=== PATIENT | female | born 2000 | race Hispanic/Latino ===

== ENCOUNTER 2021-03-01 03:49 | Inpatient (IN) | payer BC, MEDICAID ==
--- NOTE | 2021-02-28 18:04 | PCM.LDHP ---
L&D History of Present Illness - General Date of Service: 03/01/21 Admit Problem/Dx: Admission Diagnosis/Problem Admission Diagnosis/Problem section 02/28/21 17:53 Olivia is a 20-year-old 3 para 2-0-0-2 at 39-0/7 weeks gestational age with an CHASTITY of 03/08/2021 who is admitted for a repeat section. Source of Information: Patient History Limitations: Reports: No Limitations - History of Present Illness Introduction:: Olivia is a 20-year-old 3 para 2-0-0-2 at 39-0/7 weeks gestational age with an CHASTITY of 03/08/2021 who is admitted for a repeat section. The procedure, risk, benefits, alternatives of care including offering attempt at vaginal after section are all discussed in detail with patient. She appears understand, wishes to proceed and signed a consent. 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 Patient had menarche at age 9. Cycles q. 28 days. Cycles lasting approximately 7 days. Last menstrual period was only approximate. Her CHASTITY was set by an ultrasound done on 08/03/2020 at 9-0/7 weeks gestational age. Patient declines any STIs, abnormal Pap smears or other gynecologic concerns. She was not using any control at the time of conception. Past obstetric experience includes the followin. Male born 10/25/2018 at 41 weeks gestational age7 pounds 7 o uncesprimary section done for failure to progressepidural used [place]section in [place]. 2. Female born 03/13/2020 at 39 weeks gestational age7 pounds 12 ouncesrepeat C-sectionspinal anesthesiaC-section done in [place] course: Patient's first visit was on 08/03/2020. She was seen on a regular basis during the course of the . Her vital signs remained stable. Her weight went from 189 pounds to 188 pounds over the course the . Her fundal height growth was appropriate. Vital signs remained stable throughout the . She is Covid positive diagnosed on 11/01/2020. She has no residual effects from this. She desires to see the baby during the with the drape dropped down. will be attending the 2 older children and will not be attending her in room. She is group B strep positive. x2 done for failure to progress and elective repeat respectively. She has a history of gallstones. She plans to breast-feed. Prequel noninvasive screen earlier in the was negative. Patient is rubella immune. Laboratory testing in : Labs at first visit showed blood to be a positive with negative antibody screen. Hemoglobin is 12.3. Platelets were 317,000. Rubella titer was immune and RPR was nonreactive. Urine culture was negative. Hepatitis B surface antigen and HIV assays were both negative. Chlamydia, gonorrhea and HCV antibodies were negative. Second trimester laboratory testing 1 hour GTT to be 91. RPR was nonreactive. Hemoglobin was 11.7 and platelets were 266,000. Group B strep screen was positive. Prequel noninvasive testing showed low risk for trisomy 21, 18 and 13. Allergies: None Medications: 1. vitamins 1 daily Past medical history: 1. History of depression Past surgical history: 1. Appendectomy 2015 2. times 03/2016 and 2018. Family history: Mother is alive and well with hypertension. Maternal grandfather is unknown. Maternal grandmother is alive with hypertension. Father is alive but is an alcoholic. Paternal grandfather is alive as his paternal grandmother. 1 brother is alive and well. 2 sisters are both alive and well. Maternal aunt with questionable cysts. Had 1 due to this. No family history bleeding/clotting disorders, anesthesia related problems or related concerns. Social history: Patient is . is Elgin Wallace. They live in [place], [place]. She works doing daycare. She does not use any significance alcohol, drugs or tobacco. She is a high school graduate. Review of systems: In general patient has no complaints. Baby is active. No contractions noted. Skin: Negative Lungs: No infectious symptoms or shortness of breath Cardiovascular: No chest pain or exercise intolerance Breasts: No lumps, changes in size, pain, dimpling, discharge or axillary or supraclavicular concerns. Changes associated with . Patient does plan to breast-feed. GI: Negative : Body habitus changes associated with . Musculoskeletal: Negative Neurological: Negative Physical exam: In general the patient is well-developed, well-nourished, pleasant female of stated age in no acute distress. On last evaluation in clinic on 02/27/2021 blood pressure 106/72. Weight was 187. Fundal height was appropriate for dates and baby is in vertex presentation. heart rate was 135 bpm. Skin is warm dry without lesions. HEENT, neck and back within normal limits. Lungs are clear with good breath sounds in all lung turpin. Cardiovascular exam shows regular and rhythm without murmurs. Breast exam was done at first annual visit and found to be within normal is. Is not repeated at this time. Abdomen is gravid with last fundal height in clinic at 38 cm.. Genital digital exam on last evaluation clinic 02/15/2021 shows cervix to be closed, thick and firm. Extremities and neurological exam are grossly within normal limits. - Related Data Allergies/Adverse Reactions: Allergies Allergy/AdvReac Type Severity Reaction Status Date / Time No Known Allergies Allergy Verified 02/28/21 13:50 Home Medications: Home Meds Pnv No.95/Ferrous Fum/Folic AC [ Tablet] 1 tab PO DAILY 02/28/21 [History] Past Medical History Gastrointestinal History: Reports: Cholelithiasis SUMMER CAMP COUNSELOR History: Reports: Other OB/BYN History: C/S 2017 & 2019 Neurological History: Reports: Headaches, Chronic Psychiatric History: Reports: Other (See Below) Other Psychiatric History: PPD - Past Surgical History GI Surgical History: Reports: Appendectomy Female Surgical History: Reports: Section Social & Family History - Family History Family Medical History: No Pertinent Family History - Tobacco Use Tobacco Use Status *Q: Never Tobacco User Second Hand Smoke Exposure: No - Caffeine Use Caffeine Use: Reports: None - Recreational Drug Use Recreational Drug Use: No H&P Review of Systems - Review of Systems: Review Of Systems: See Below L&D Exam - Exam Exam: See Below - Problem List (1) 39 weeks gestation of SNOMED Code(s): 85721846 ICD Code: Z3A.39 - 39 WEEKS GESTATION OF Status: Acute (2) Previous section SNOMED Code(s): 887258026 ICD Code: Z98.891 - HISTORY OF UTERINE SCAR FROM PREVIOUS SURGERY Status: Acute (3) Group beta Strep positive SNOMED Code(s): 792567764, [id number] ICD Code: B95.1 - STREPTOCOCCUS, GROUP B, CAUSING DISEASES CLASSD [id number] Status: Acute (4) Cholelithiasis SNOMED Code(s): 707604415 ICD Code: K80.20 - CALCULUS OF GALLBLADDER W/O CHOLECYSTITIS W/O OBSTRUCTION Status: Acute Problem List Initiated/Reviewed/Updated: Yes Assessment/Plan Comment:: 1. Olivia is a 20-year-old 3 para 2-0-0-2 at 39-0/7 weeks gestational age with an CHASTITY of 03/08/2021 who is admitted for a repeat section. Patient has had previous x2 with desire for repeat section. Procedure, risk, benefits, alternatives of care including attempting a trial of labor after section for all discussed with patient and her . They appear to understand and wished to proceed. Consent is signed. 2. Risk factors for the include group B strep positive status, histor y of Covid during , x2, history of gallstones. 3. Patient plans to breast-feed 4. Patient is rubella immune. She declined Tdap. Plan: 1. Repeat lower in segment transverse section with Pfannenstiel skin incision under spinal block. 2. DVT prophylaxis with SCDs 3. Infection prophylaxis with Ancef 2 g IV preop 4. Routine preoperative evaluation: Type and screen, CBC, Covid testing, RPR per routine. 5. Support breast-feeding decision 6. 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
[~2021-03-01 03:49] MED LIST: Oxytocin/Lactated Ringers 10 UNIT/1,000 ML BAG IV SCH; Oxytocin/Lactated Ringers 20 UNIT/1,000 ML BAG IV SCH
[2021-03-01] MEDS ORDERED: Citric Acid/Sodium Citrate Solution 30 ML Cup PO ONE (05:30)
[2021-03-01] MEDS ORDERED: ceFAZolin 2 GM in Sodium Chloride 0.9% 50 ML IV ONE (05:30)
[2021-03-01] MEDS ORDERED: Metoclopramide 10 MG/2 ML SDV IVPUSH ONE (05:30)
[2021-03-01] MEDS: Lactated Ringers 1,000 ML IV SCH ×2 (06:45→07:34)
[2021-03-01] MEDS ORDERED: Phenylephrine 1% 10 MG/ML SDV ONE (07:18)
[2021-03-01] MEDS ORDERED: ceFAZolin 1 GM Vial ONE (07:18)
[2021-03-01] MEDS ORDERED: Morphine PF 10 MG/10 ML SDV ONE (07:19)
[2021-03-01] MEDS ORDERED: Oxytocin 10 Units/1 ML SDV ONE ×2 (07:25→08:11)
[2021-03-01] MEDS ORDERED: Ketorolac 30 MG/ML SDV ONE (07:25)
[2021-03-01] MEDS ORDERED: Bupivacaine 0.5% 10 ML SDV ONE (07:26)
[2021-03-01] MEDS ORDERED: diphenhydrAMINE 50 MG/ML SDV IVPUSH PRN ×2 (08:47→08:56)
--- NOTE | 2021-03-01 08:48 | PCM.POSTAN ---
POST ANESTHESIA ASSESSMENT - MENTAL STATUS Mental Status: Alert, Oriented - VITAL SIGNS Vital Signs: Last Vital Signs Temp 36.4 C 03/01/21 06:30 Pulse 89 03/01/21 06:30 Resp 14 03/01/21 06:30 BP 122/50 L 03/01/21 06:30 Pulse Ox 100 03/01/21 06:30 - RESPIRATORY Respiratory Status: Respiratory Rate WNL - CARDIOVASCULAR CV Status: Pulse Rate WNL, Blood Pressure Stable - GASTROINTESTINAL GI Status: No Symptoms - PAIN Pain Score: 0 - POST OP HYDRATION Hydration Status: Adequate & Stable - OBSERVATIONS Free Text/Narrative:: no anesthesia complications noted
--- NOTE | 2021-03-01 08:50 | PCM.PREANE ---
Preanesthetic Assessment - Procedure Proposed Procedure: Repeat - Anesthesia/Transfusion/Family Hx Anesthesia History: Prior Anesthesia Without Reaction Family History of Anesthesia Reaction: No Transfusion History: No Prior Transfusion(s) - Review of Systems General: No Symptoms Pulmonary: No Symptoms Cardiovascular: No Symptoms Gastrointestinal: No Symptoms Neurological: No Symptoms Other: Reports: None - Physical Assessment NPO Status Date: 02/28/21 NPO Status Time: 00:00 Vital Signs: Last Vital Signs Temp 36.4 C 03/01/21 06:30 Pulse 89 03/01/21 06:30 Resp 14 03/01/21 06:30 BP 122/50 L 03/01/21 06:30 Pulse Ox 100 03/01/21 06:30 Height: 1.57 m Weight: 85.23 kg ASA Class: 2 Mental Status: Alert & Oriented x3 Airway Class: Mallampati = 1 Dentition: Reports: Normal Dentition Thyro-Mental Finger Breadths: 3 Mouth Opening Finger Breadths: 3 ROM/Head Extension: Full Lungs: Clear to Auscultation, Normal Respiratory Effort Cardiovascular: Regular Rate, Regular Rhythm - Lab Values: Laboratory Last Values WBC 10.75 K/mm3 (3.98-10.04) H 03/01/21 06:25 RBC 4.56 M/mm3 (3.98-5.22) 03/01/21 06:25 Hgb 12.7 gm/dl (11.2-15.7) 03/01/21 06:25 Hct 38.7 % (34.1-44.9) 03/01/21 06:25 MCV 84.9 fl (79.4-94.8) 03/01/21 06:25 MCH 27.9 pg (25.6-32.2) 03/01/21 06:25 MCHC 32.8 g/dl (32.2-35.5) 03/01/21 06:25 RDW Std Deviation 41.9 fL (36.4-46.3) 03/01/21 06:25 Plt Count 308 K/mm3 (182-369) 03/01/21 06:25 MPV 9.7 fl (9.4-12.3) 03/01/21 06:25 Neut % (Auto) 72.2 % (34.0-71.1) H 03/01/21 06:25 Lymph % (Auto) 20.9 % (19.3-51.7) 03/01/21 06:25 Citrus % (Auto) 5.5 % (4.7-12.5) 03/01/21 06:25 Eos % (Auto) 0.8 (0.7-5.8) 03/01/21 06:25 Baso % (Auto) 0.2 % (0.1-1.2) 03/01/21 06:25 Neut # (Auto) 7.76 K/mm3 (1.56-6.13) H 03/01/21 06:25 Lymph # (Auto) 2.25 K/mm3 (1.18-3.74) 03/01/21 06:25 Citrus # (Auto) 0.59 K/mm3 (0.24-0.36) H 03/01/21 06:25 Eos # (Auto) 0.09 K/mm3 (0.04-0.36) 03/01/21 06:25 Baso # (Auto) 0.02 K/mm3 (0.01-0.08) 03/01/21 06:25 SARS-CoV-2 RNA (ANÍBAL) Negative (NEGATIVE) 03/01/21 06:30 Blood Type A POSITIVE 03/01/21 06:25 - Allergies Allergies/Adverse Reactions: Allergies Allergy/AdvReac Type Severity Reaction Status Date / Time No Known Allergies Allergy Verified 02/28/21 13:50 - Anesthesia Plan Pre-Op Medication Ordered: Antacids - Acknowledgements Anesthesia Type Planned: Spinal Pt an Appropriate Candidate for the Planned Anesthesia: Yes Alternatives and Risks of Anesthesia Discussed w Pt/Guardian: Yes Pt/Guardian Understands and Agrees with Anesthesia Plan: Yes PreAnesthesia Questionnaire Gastrointestinal History: Reports: Cholelithiasis, GERD 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: Other OB/BYN History: C/S 2017 & 2019 Neurological History: Reports: Headaches, Chronic Psychiatric History: Reports: Other (See Below) Other Psychiatric History: PPD - Past Surgical History GI Surgical History: Reports: Appendectomy Female Surgical History: Reports: Section - SUBSTANCE USE Tobacco Use Status *Q: Never Tobacco User Tobacco Use Within Last Twelve Months: No Second Hand Smoke Exposure: No Recreational Drug Use History: No - HOME MEDS Home Medications: Home Meds Pnv No.95/Ferrous Fum/Folic AC [ Tablet] 1 tab PO DAILY 02/28/21 [History] - CURRENT (IN HOUSE) MEDS Current Meds: Current Medications Diphenhydramine HCl (Diphenhydramine 50 Mg/Ml Sdv) 25 mg IVPUSH Q6H PRN PRN Reason: Itching Lactated Ringer's (Ringers, Lactated) 1,000 mls @ 125 mls/hr IV ASDIRECTED JAVIER Last Admin: 03/01/21 07:34 Dose: 125 mls/hr Documented by: Oxytocin/Lactated Ringer's (Pitocin In Lr 20 Units/1,000 Ml) 20 unit in 1,000 mls @ 1,500 mls/hr IV TITRATE JAVIER; Protocol Sodium Chloride (Sodium Chloride 0.9% 10 Ml Syringe) 10 ml FLUSH 0900,2100 JAVIER Discontinued Medications Bupivacaine HCl (Bupivacaine 0.5% 10 Ml Sdv) Confirm Administered Dose 20 ml .ROUTE .STK-MED ONE Stop: 03/01/21 07:27 Cefazolin Sodium (Cefazolin 1 Gm Vial) Confirm Administered Dose 2 gm .ROUTE .STK-MED ONE Stop: 03/01/21 07:19 Citric Acid/Sodium Citrate (Citric Acid/Sodium Citrate Solution 30 Ml Cup) 30 ml PO ONETIME ONE Stop: 03/01/21 05:31 Last Admin: 03/01/21 07:10 Dose: 30 ml Documented by: Cefazolin Sodium 2 gm/ Sodium (Chloride) 50 mls @ 100 mls/hr IV ONETIME ONE Stop: 03/01/21 05:59 Ketorolac Tromethamine (Ketorolac 30 Mg/Ml Sdv) Confirm Administered Dose 30 mg .ROUTE .STK-MED ONE Stop: 03/01/21 07:26 Metoclopramide HCl (Metoclopramide 10 Mg/2 Ml Sdv) 10 mg IVPUSH ONETIME ONE Stop: 03/01/21 05:31 Last Admin: 03/01/21 07:10 Dose: 10 mg Documented by: Miscellaneous Medication (Phenylephrine Hcl In 0.9% Nacl 1 Mg/10 Ml Syringe) Confirm Administered Dose 1 mg .ROUTE .STK-MED ONE Stop: 03/01/21 07:20 Morphine Sulfate (Morphine Pf 10 Mg/10 Ml Sdv) Confirm Administered Dose 10 mg .ROUTE .STK-MED ONE Stop: 03/01/21 07:20 Oxytocin (Oxytocin 10 Units/1 Ml Sdv) Confirm Administered Dose [address] .[facility] ONE Stop: 03/01/21 07:26 Oxytocin (Oxytocin 10 Units/1 Ml Sdv) Confirm Administered Dose 10 [address] .[facility] ONE Stop: 03/01/21 08:12 Phenylephrine HCl (Phenylephrine 1% 10 Mg/Ml Sdv) Confirm Administered Dose 10 mg .[address] .[facility] ONE Stop: 03/01/21 07:19
--- NOTE | 2021-03-01 08:54 | PCM.OPNOTE ---
- General Post-Op/Procedure Note Date of Surgery/Procedure: 03/01/21 Operative Procedure(s): Repeat lower uterine segment transverse section through Pfannenstiel skin incision Findings: Anterior abdominal wall had minimal scarring present from previous C-sections. Anterior uterine, lower uterine segment was very thin at no more than 1 mm thick. The fallopian tubes and ovaries were otherwise within normal limits. Omentum was somewhat adhered to the anterior abdominal wall into the anterior superior portion of the uterus. Baby had terminal meconium but amniotic fluid is relatively clear. It is a vertex presentation. Female born at 081 0 hours on 03/01/2023. Apgars 8 and 8. Weight was 3130 g (6 pounds 14 ounces) Pre Op Diagnosis: 20-year-old 3 para 2-0-0-2 female at 39-0/7 weeks with history of previous section x2 and desire for repeat section. Post-Op Diagnosis: Same as preop was delivery of a Female born at 0810 hours on 03/01/2023. Apgars 8 and 8. Weight was 3130 g (6 pounds 14 ounces) Anesthesia Technique: Spinal Other Anesthesia Type: Marcaine 0.5% - 20 mLlocal Primary Surgeon: Vadim Castanon Secondary Surgeon: Marcial Hernandez Anesthesia Provider: Teto Isbell Wood And Hardware Outfitter: Jeannine Perez Reason Wood And Hardware Outfitter Was Necessary: Retraction, assistance, patient safety, quality of care. Fluid Replacement, Intraop: 2,600 Output, Urine Amount: 100 EBL in mLs: 600 Drain/Tube Comments:: Indwelling bladder catheter Complications: None Condition: Good Free Text/Narrative:: Surgery duration: 30 minutes Surgery duration: Procedure: The patient is appropriately consented. Patient was transferred to the room and placed in a sitting position. Spinal anesthesia was administered. After confirmation of adequate anesthesia patient was placed in a supine position with a wedge under her right side to facilitate left lateral positioning. The patient was prepped and draped in usual fashion after Dallas catheter was already placed . The anesthetic was checked and found to be adequate. 20 mL of Marcaine 0.5% was injected locally in the Pfannenstiel incision site. The Pfannenstiel skin incision was then made and carried down through skin, subcutaneous and fascial layers. The fascia was then undermined superiorly and inferiorly to allow for adequate operating room. The recti muscles midline and preperitoneal fat was bluntly dissected. Peritoneal cavity was entered longitudinally. The vesicouterine peritoneum was then incised transversely and bladder flap was developed. Myometrium was found to be very thin at no more than 1 mm thickness. Myometrium was incised transversely to the level of the amniotic sac. This incision was extended bilaterally in a blunt fashion. The amniotic sac was then ruptured resulting in clear amniotic fluid. As the baby delivered there was some terminal meconium evident. Nuchal cord x1 was noted and was reduced over the baby's head. A hand is placed in the low uterine segment and the baby's head was brought forth through the incision. The baby was completely delivered using fundal pressure in a routine fashion. The nose and mouth were bulb suctioned. Baby's cord was clamped x2 cut and baby was handed off to attending head of marketing Dr Cuellar. Placenta was expressed after cord blood was obtained. Uterus was then exteriorized to allow for easier closure. The cervix was assessed and found to be dilated adequately to allow egress of blood. The uterus was closed in 2 layers. The first layer a running locked suture of 0 Monocryl, the second layer a running locked vertical mattress suture of 0 Monocryl. Hemostasis confirmed at this time. Sponge instrument needle counts are correct. The uterus was returned to the abdominal cavity and lateral gutters were cleared of blood. Once again sponge needle counts are correct. The anterior abdominal wall was closed with a #1 PDS suture from angle to angle. The subcutaneous area was found to be free of any bleeders. interrupted sutures of 3-0 Monocryl were used to reapproximate the subcutaneous layer.Skin was closed with a running subcuticular stitch of 3-0 Monocryl in a vertical mattress suture fashion using a Duc needle. Prineo mesh/glue was then applied to further approximate the incision. It should be noted that patient received 2 g of Ancef preoperatively for infection prophylaxis and had Pitocin infused after delivery of the placenta to facilitate uterine contraction. She also had sequential compression stockings in place for DVT prophylaxis. Patient was discharged from the operating room in satisfactory condition.
[2021-03-01] MEDS ORDERED: Naloxone 0.4 MG/ML SDV IVPUSH PRN (08:56)
[2021-03-01] MEDS ORDERED: Docusate Sodium 100 MG Cap PO PRN (08:56)
[2021-03-01] MEDS ORDERED: Dextrose 5%-Lactated Ringers 1,000 ML IV SCH (08:56)
[2021-03-01] MEDS ORDERED: ePHEDrine 50 MG/ML SDV IVPUSH PRN (08:56)
[2021-03-01] MEDS ORDERED: Sodium Chloride 0.9% 10 ML Syringe FLUSH SCH (09:00)
[2021-03-01] MEDS: Ondansetron 4 MG/2 ML SDV IV PRN ×2 (10:16→14:08)
[2021-03-01] MEDS: Simethicone 80 MG Tab.Chew PO SCH ×4 (10:51→20:09)
[2021-03-01] MEDS: Prenatal Multivitamin with Calcium/Folic Acid/Iron Tab PO SCH (10:51)
[2021-03-01] MEDS: Acetaminophen/oxyCODONE 325-5 MG Tab PO PRN ×2 (11:54→17:30)
[2021-03-01] MEDS: Ibuprofen 600 MG Tab PO SCH ×2 (14:09→20:06)
[2021-03-02] MEDS: Ibuprofen 600 MG Tab PO SCH ×4 (01:59→20:30)
[2021-03-02] MEDS: Acetaminophen/oxyCODONE 325-5 MG Tab PO PRN ×3 (06:55→21:26)
--- NOTE | 2021-03-02 07:00 | PCM48HPAN ---
Post Anesthesia Note - EVALUATION WITHIN 48HRS OF ANESTHETIC Vital Signs in Normal Range: Yes Patient Participated in Evaluation: Yes Respiratory Function Stable: Yes Airway Patent: Yes Cardiovascular Function Stable: Yes Hydration Status Stable: Yes Pain Control Satisfactory: Yes Nausea and Vomiting Control Satisfactory: Yes Mental Status Recovered: Yes Vital Signs: Last Vital Signs Temp 99.1 F 03/02/21 03:25 Pulse 72 03/02/21 03:25 Resp 16 03/02/21 05:00 BP 112/64 03/02/21 03:25 Pulse Ox 96 03/02/21 05:00 - COMMENTS/OBSERVATIONS Free Text/Narrative:: Patient resting in bed holding baby when visiting with patient. Patient stated that she was "very happy" with her and spinal experience. Patient complained of mild back pain in spinal placement site but is controlled and has not gotten worse. Discussed signs and symptoms of infection, post-dural puncture headaches, post- depression, and if patient experiences increased back discomfort. Encouraged patient if any of those signs or symptoms develop to contact OB/Anesthesia so the patient can be treated accordingly if needed. Patient verbalized understanding. Patient did not voice any questions or concerns at this time. Mckenzie Duggan, FINAL EXPENSE AGENT
[2021-03-02] MEDS: Simethicone 80 MG Tab.Chew PO SCH ×4 (08:13→20:30)
[2021-03-02] MEDS: Prenatal Multivitamin with Calcium/Folic Acid/Iron Tab PO SCH (08:13)
--- NOTE | 2021-03-02 08:24 | PCM.SN.2 ---
- Free Text/Narrative Note: Post Operative Progress Note POD #1 Subjective: Doing well overall. Ambulating without difficulty. Lochia minimal. Dallas catheter removed earlier this morning and has not had urge to void since removal. Passing flatus. Tolerating regular diet without nausea or vomiting. Pain controlled with oral medications. Breast-feeding with minimal difficulty. Denies any fevers or chills. Objective: Vitals: Vital Signs - 24 hr 03/01/21 03/01/21 03/01/21 08:42 08:50 09:00 Temperature Temperature [ 36.7 C Temporal] Pulse, Peripheral Respiratory 23 H 19 19 Rate Blood Pressure Blood Pressure 100/54 L 101/60 104/61 [Right Upper] O2 Sat by Pulse 97 97 96 Oximetry 03/01/21 03/01/21 03/01/21 09:15 09:34 13:00 Temperature 36.2 C Temperature [ 36.2 C 36.1 C Temporal] Pulse, 66 Peripheral Respiratory 16 16 16 Rate Blood Pressure 112/66 Blood Pressure 105/61 [Right Upper] O2 Sat by Pulse 99 97 98 Oximetry 03/01/21 03/01/21 03/01/21 13:59 14:02 14:04 Temperature Temperature [ Temporal] Pulse, 70 78 75 Peripheral Respiratory Rate Blood Pressure 125/74 73/36 L 114/60 Blood Pressure [Right Upper] O2 Sat by Pulse 99 100 100 Oximetry 03/01/21 03/01/21 03/01/21 14:31 15:02 15:32 Temperature Temperature [ Temporal] Pulse, 68 70 67 Peripheral Respiratory Rate Blood Pressure 103/57 L 109/59 L 119/59 L Blood Pressure [Right Upper] O2 Sat by Pulse 99 98 97 Oximetry 03/01/21 03/01/21 03/01/21 15:58 16:00 17:00 Temperature Temperature [ 36.5 C Temporal] Pulse, 70 Peripheral Respiratory 16 18 Rate Blood Pressure 107/66 Blood Pressure [Right Upper] O2 Sat by Pulse 99 97 97 Oximetry 03/01/21 03/01/21 03/01/21 20:44 22:00 23:00 Temperature 37.2 C Temperature [ Temporal] Pulse, 72 Peripheral Respiratory 16 15 14 Rate Blood Pressure 122/61 Blood Pressure [Right Upper] O2 Sat by Pulse 96 97 96 Oximetry 03/02/21 03/02/21 03/02/21 03:00 03:25 04:00 Temperature 37.3 C Temperature [ Temporal] Pulse, 72 Peripheral Respiratory 14 16 16 Rate Blood Pressure 112/64 Blood Pressure [Right Upper] O2 Sat by Pulse 96 96 96 Oximetry Physical Exam General: Alert and oriented, no acute distress Lungs: Clear to auscultation bilaterally Heart: Regular rate and rhythm Abdomen: Soft, minimal appropriate tenderness, non-distended, fundus midline, nontender and at the umbilicus Incision: Clean, dry and intact, no erythema, bleeding or drainage with Prineo dressing in place Extremities: No edema in bilateral lower extremities, no calf tenderness bilaterally Labs: Laboratory Results - last 24 hr 03/01/21 03/01/21 03/02/21 Range/Units 06:25 06:25 05:14 WBC 9.88 (3.98-10.04) K/mm3 RBC 3.68 L (3.98-5.22) M/mm3 Hgb 10.0 L D (11.2-15.7) gm/dl Hct 31.8 L (34.1-44.9) % MCV 86.4 (79.4-94.8) fl MCH 27.2 (25.6-32.2) pg MCHC 31.4 L (32.2-35.5) g/dl RDW Std Deviation 41.9 (36.4-46.3) fL Plt Count 253 (182-369) K/mm3 MPV 9.9 (9.4-12.3) fl Neut % (Auto) 70.0 (34.0-71.1) % Lymph % (Auto) 22.0 (19.3-51.7) % [place] % (Auto) 6.8 (4.7-12.5) % Eos % (Auto) 0.8 (0.7-5.8) Baso % (Auto) 0.2 (0.1-1.2) % Neut # (Auto) 6.92 H (1.56-6.13) K/mm3 Lymph # (Auto) 2.17 (1.18-3.74) K/mm3 [place] # (Auto) 0.67 H (0.24-0.36) K/mm3 Eos # (Auto) 0.08 (0.04-0.36) K/mm3 Baso # (Auto) 0.02 (0.01-0.08) K/mm3 RPR Non-reactive (NONREACTIVE) Blood Type A POSITIVE Gel Antibody Screen Negative ASSESSMENT: 20-year-old female -0-0-3 s/p repeat section POD #1 for history of section, complicated by history of depression and GBS positive status PLAN: Doing well Breast-feeding with minimal difficulty. Assist as needed Incision healing well. Continue to keep clean and dry. Lochia minimal. Continue to monitor for appropriate lochia. Continue routine post-operative care Monitor for ability to urinate after removal of the catheter. If patient is unable to urinate after 4 to 6 hours would recommend for straight cath x1 and if still unable to void 4 to 6 hours after that and then reinsert Dallas catheter Anticipate discharge home tomorrow Marcial Hernandez MD 8:22 AM 03/02/2021
[2021-03-03] MEDS: Ibuprofen 600 MG Tab PO SCH ×2 (02:32→09:58)
--- NOTE | 2021-03-03 09:42 | PCM.SN.2 ---
- Free Text/Narrative Note: Post Operative Progress Note POD #2 Subjective: Continues to be doing well overall. Ambulating without difficulty. Lochia minimal. Voiding without difficulty. Passing flatus. Tolerating regular diet without nausea or vomiting. Pain controlled with oral medications. Breast- feeding with minimal difficulty. Denies any fevers or chills. Objective: Vitals: Vital Signs - 24 hr 03/02/21 03/02/21 03/03/21 14:37 21:29 02:38 Temperature 37.0 C 36.5 C 36.7 C Pulse, 66 77 70 Peripheral Respiratory 16 16 14 Rate Blood Pressure 114/71 101/66 123/64 O2 Sat by Pulse 94 L 97 95 Oximetry Physical Exam General: Alert and oriented, no acute distress Lungs: Clear to auscultation bilaterally Heart: Regular rate and rhythm Abdomen: Soft, minimal appropriate tenderness, non-distended, fundus midline, nontender and at the umbilicus Incision: Clean, dry and intact, no erythema, bleeding or drainage with Prineo dressing in place Extremities: No edema in bilateral lower extremities, no calf tenderness bilaterally ASSESSMENT: 20-year-old female -0-0-3 s/p repeat section POD #2 for history of section, complicated by history of depression and GBS positive status PLAN: Doing well Breast-feeding with minimal difficulty. Assist as needed Incision healing well. Continue to keep clean and dry. Lochia minimal. Continue to monitor for appropriate lochia. Continue routine post-operative care Anticipate discharge home today Marcial Hernandez MD 9:41 AM 03/03/2021
--- NOTE | 2021-03-03 09:45 | PCM.DCSUM1 ---
Discharge Summary - Hospital Course Free Text/Narrative:: - General Post-Op/Procedure Note Date of Surgery/Procedure: 03/01/21 Operative Procedure(s): Repeat lower uterine segment transverse section through Pfannenstiel skin incision Findings: Anterior abdominal wall had minimal scarring present from previous C-sections. Anterior uterine, lower uterine segment was very thin at no more than 1 mm thick. The fallopian tubes and ovaries were otherwise within normal limits. Omentum was somewhat adhered to the anterior abdominal wall into the anterior superior portion of the uterus. Baby had terminal meconium but amniotic fluid is relatively clear. It is a vertex presentation. Female infant born at 081 0 hours on [birth year]21. Apgars 8 and 8. Weight was 3130 g (6 pounds 14 ounces) Pre Op Diagnosis: 20-year-old 3 para 2-0-0-2 female at 39-0/7 weeks with history of previous section x2 and desire for repeat section. Post-Op Diagnosis: Same as preop was delivery of a Female born at 0810 hours on 03/01/2021. Apgars 8 and 8. Weight was 3130 g (6 pounds 14 ounces) Anesthesia Technique: Spinal Other Anesthesia Type: Marcaine 0.5% - 20 mLlocal Primary Surgeon: Vadim Castanon Secondary Surgeon: Marcial Hernandez Anesthesia Provider: Teto sIbell Ornamental Plaster Sticker: Jeannine Perez Reason Ornamental Plaster Sticker Was Necessary: Retraction, assistance, patient safety, quality of care. Fluid Replacement, Intraop: 2,600 Output, Urine Amount: 100 EBL in mLs: 600 Drain/Tube Comments:: Indwelling bladder catheter Complications: None Condition: Good Free Text/Narrative:: Surgery duration: 30 minutes Surgery duration: Procedure: The patient is appropriately consented. Patient was transferred to the room and placed in a sitting position. Spinal anesthesia was administered. After confirmation of adequate anesthesia patient was placed in a supine position with a wedge under her right side to facilitate left lateral positioning. The patient was prepped and draped in usual fashion after [place] catheter was already placed . The anesthetic was checked and found to be adequate. 20 mL of Marcaine 0.5% was injected locally in the Pfannenstiel incision site. The Pfannenstiel skin incision was then made and carried down through skin, subcutaneous and fascial layers. The fascia was then undermined superiorly and inferiorly to allow for adequate operating room. The recti muscles midline and preperitoneal fat was bluntly dissected. Peritoneal cavity was entered longitudinally. The vesicouterine peritoneum was then incised transversely and bladder flap was developed. Myometrium was found to be very thin at no more than 1 mm thickness. Myometrium was incised transversely to the level of the amniotic sac. This incision was extended bilaterally in a blunt fashion. The amniotic sac was then ruptured resulting in clear amniotic fluid. As the baby delivered there was some terminal meconium evident. Nuchal cord x1 was noted and was reduced over the baby's head. A hand is placed in the low uterine segment and the baby's head was brought forth through the incision. The baby was completely delivered using fundal pressure in a routine fashion. The nose and mouth were bulb suctioned. Baby's cord was clamped x2 cut and baby was handed off to attending bevel mill operator Dr Cuellar. Placenta was expressed after cord blood was obtained. Uterus was then exteriorized to allow for easier closure. The cervix was assessed and found to be dilated adequately to allow egress of blood. The uterus was closed in 2 layers. The first layer a running locked suture of 0 Monocryl, the second layer a running locked vertical mattress suture of 0 Monocryl. Hemostasis confirmed at this time. Sponge instrument needle counts are correct. The uterus was returned to the abdominal cavity and lateral gutters were cleared of blood. Once again sponge needle counts are correct. The anterior abdominal wall was closed with a #1 PDS suture from angle to angle. The subcutaneous area was found to be free of any bleeders. interrupted sutures of 3-0 Monocryl were used to reapproximate the subcutaneous layer.Skin was closed with a running subcuticular stitch of 3-0 Monocryl in a vertical mattress suture fashion using a Duc needle. Prineo mesh/glue was then applied to further approximate the incision. It should be noted that patient received 2 g of Ancef preoperatively for infection prophylaxis and had Pitocin infused after delivery of the placenta to facilitate uterine contraction. She also had sequential compression stockings in place for DVT prophylaxis. Patient was discharged from the operating room in satisfactory condition. Diagnosis: Stroke: No - Discharge Data Discharge Date: 03/03/21 Discharge Disposition: Home, Self-Care 01 Condition: Good - Referral to Home Health Primary Care Physician: Vadim Castanon MD - Discharge Diagnosis/Problem(s) (1) delivery delivered SNOMED Code(s): 869800842 ICD Code: O82 - ENCOUNTER FOR DELIVERY WITHOUT INDICATION Status: Acute Current Visit: Yes (2) 39 weeks gestation of SNOMED Code(s): 57784699 ICD Code: Z3A.39 - 39 WEEKS GESTATION OF Status: Acute Current Visit: No (3) Cholelithiasis SNOMED Code(s): 792683396 ICD Code: K80.20 - CALCULUS OF GALLBLADDER W/O CHOLECYSTITIS W/O OBSTRUCTION Status: Acute Current Visit: No (4) Group beta Strep positive SNOMED Code(s): 725763935, 072484773 ICD Code: B95.1 - STREPTOCOCCUS, GROUP B, CAUSING DISEASES CLASSD [id number] Status: Acute Current Visit: No (5) Previous section SNOMED Code(s): 832208668 ICD Code: Z98.891 - HISTORY OF UTERINE SCAR FROM PREVIOUS SURGERY Status: Acute Current Visit: No - Patient Summary/Data Operative Procedure(s) Performed: Repeat lower uterine segment transverse section through Pfannenstiel skin incision Complications: None Consults: None Hospital Course: Olivia Sanchez was admitted for repeat section. She was taken back to the OR and given spinal injection for anesthesia. She was given Ancef 2 g IV for antibiotic prophylaxis. She was prepped and draped in the normal fashion. On 03/01/2021 she had a normal repeat delivery of a live female infant at 08:10. Apgars of 8 and 8. Weight of 3130 g (6 pounds 14 ounces). She was closed in a normal fashion. There were no complications with the procedure. Please see the operative report for full details. Her post operative course was uneventful. Her pain was well controlled and she had minimal lochia. She was ambulating, tolerating a regular diet and voiding normally. She was passing flatus and has not had a bowel movement. She was breast feeding without difficulty. She was afebrile and her hematocrit was 31.8 on POD #1. She desired to be discharged home on the morning of POD #2. Her blood type is A+. - Patient Instructions Diet: Regular Diet as Tolerated Activity: Apply Ice, As Tolerated, No Lifting Over 20 Pounds Activity, Other: Nothing in the vagina for 6 weeks Driving: Do Not Drive (While having significant pain or while on medications) Showering/Bathing: May Shower Wound/Incision Care: Keep Operative Site/Wound Site Clean and Dry Notify Provider of: Fever, Increased Pain, Swelling and Redness, Drainage, Nausea and/or Vomiting Other/Special Instructions: Please contact your physician's office if you note any bleeding or pus coming from the abdominal incision. Please contact your physician's office if you have heavy vaginal bleeding enough to soak a pad in less than an hour for several hours. Monitor for any signs of an infection in the breasts with severe pain or redness of the breast. - Discharge Plan *PRESCRIPTION DRUG MONITORING PROGRAM REVIEWED*: Yes *COPY OF PRESCRIPTION DRUG MONITORING REPORT IN PATIENT KAUSHAL: No Prescriptions/Med Rec: Acetaminophen/oxyCODONE [Percocet 325-5 MG] 1 - 2 tab PO Q6H PRN #30 tablet PRN Reason: Pain Home Medications: Home Meds Pnv No.95/Ferrous Fum/Folic AC [ Tablet] 1 tab PO DAILY 02/28/21 [History] Acetaminophen/oxyCODONE [Percocet 325-5 MG] 1 - 2 tab PO Q6H PRN #30 tablet 03/03/21 [Rx] Docusate Sodium [Colace] 100 mg PO Q12H PRN cap 03/03/21 [Rx] Ibuprofen [Motrin] 600 mg PO Q6H tablet 03/03/21 [Rx] Simethicone 80 mg PO QID tab.chew 03/03/21 [Rx] Patient Handouts: Delivery, Care After Referrals: Vadim Castanon MD [Primary Care Provider] - (Follow-up in 2 weeks for routine postoperative visit or earlier as needed) - Discharge Summary/Plan Comment DC Time >30 min.: No Total # of Minutes for Discharge Time: 15 minutes - Patient Data Vitals - Most Recent: Last Vital Signs Temp 36.7 C 03/03/21 02:38 Pulse 70 03/03/21 02:38 Resp 14 03/03/21 02:38 BP 123/64 03/03/21 02:38 Pulse Ox 95 03/03/21 02:38 Weight - Most Recent: 85.23 kg I&O - Last 24 hours: Intake & Output 03/02/21 03/03/21 03/03/21 22:59 06:59 14:59 Intake Total 240 Output Total 1300 Balance -1060 Med Orders - Current: Current Medications Diphenhydramine HCl (Diphenhydramine 50 Mg/Ml Sdv) 25 mg IVPUSH Q6H PRN PRN Reason: Itching Last Admin: 03/01/21 22:18 Dose: 25 mg Documented by: Diphenhydramine HCl (Diphenhydramine 50 Mg/Ml Sdv) 25 mg IVPUSH Q6H PRN PRN Reason: Itching or Nausea Docusate Sodium (Docusate Sodium 100 Mg Cap) 100 mg PO Q12H PRN PRN Reason: Constipation Last Admin: 03/01/21 20:10 Dose: 100 mg Documented by: Ephedrine Sulfate (Ephedrine 50 Mg/Ml Sdv) 5 mg IVPUSH SEECOMMENT PRN PRN Reason: Other Ibuprofen (Ibuprofen 600 Mg Tab) 600 mg PO Q6H [facility] Last Admin: 03/03/21 02:32 Dose: 600 mg Documented by: Naloxone HCl (Naloxone 0.4 Mg/Ml Sdv) 0.1 mg IVPUSH SEECOMMENT PRN PRN Reason: Respiratory Depression Ondansetron HCl (Ondansetron 4 Mg/2 Ml Sdv) 4 mg IV Q4H PRN PRN Reason: Nausea/Vomiting Last Admin: 03/01/21 14:08 Dose: 4 mg Documented by: Oxycodone/Acetaminophen (Acetaminophen/Oxycodone 325-5 Mg Tab) 1 tab PO Q4H PRN PRN Reason: Pain (moderate 4-6) Last Admin: 03/01/21 17:30 Dose: 1 tab Documented by: Oxycodone/Acetaminophen (Acetaminophen/Oxycodone 325-5 Mg Tab) 2 tab PO Q4H PRN PRN Reason: Pain (severe 7-10) Last Admin: 03/02/21 21:26 Dose: 2 tab Documented by: Prenat Multivit/Rochelle/Iron/Folic Ac ( Multivitamin With Calcium/Folic Acid/Iron Tab) 1 each PO DAILY [facility] Last Admin: 03/02/21 08:13 Dose: 1 each Documented by: Simethicone (Simethicone 80 Mg Tab.Chew) 80 mg PO QID [facility] Last Admin: 03/02/21 20:30 Dose: 80 mg Documented by: Discontinued Medications Bupivacaine HCl (Bupivacaine 0.5% 10 Ml Sdv) Confirm Administered Dose 20 ml .ROUTE .STK-MED ONE Stop: 03/01/21 07:27 Last Admin: 03/01/21 09:23 Dose: 20 ml Documented by: Cefazolin Sodium (Cefazolin 1 Gm Vial) Confirm Administered Dose 2 gm .ROUTE .STK-MED ONE Stop: 03/01/21 07:19 Citric Acid/Sodium Citrate (Citric Acid/Sodium Citrate Solution 30 Ml Cup) 30 ml PO ONETIME ONE Stop: 03/01/21 05:31 Last Admin: 03/01/21 07:10 Dose: 30 ml Documented by: Cefazolin Sodium 2 gm/ Sodium (Chloride) 50 mls @ 100 mls/hr IV ONETIME ONE Stop: 03/01/21 05:59 Lactated Ringer's (Ringers, Lactated) 1,000 mls @ 125 mls/hr IV ASDIRECTED [facility] Last Admin: 03/01/21 07:34 Dose: 125 mls/hr Documented by: Oxytocin/Lactated Ringer's (Pitocin In Lr 20 Units/1,000 Ml) 20 unit in 1,000 mls @ 1,500 mls/hr IV TITRATE [facility]; Protocol Dextrose/Lactated Ringer's (Dextrose 5%-Lactated Ringers) 1,000 mls @ 125 mls/hr IV ASDIRECTED [facility] Stop: 03/01/21 16:55 Last Admin: 03/01/21 10:18 Dose: 125 mls/hr Documented by: Ketorolac Tromethamine (Ketorolac 30 Mg/Ml Sdv) Confirm Administered Dose 30 mg .ROUTE .STK-MED ONE Stop: 03/01/21 07:26 Metoclopramide HCl (Metoclopramide 10 Mg/2 Ml Sdv) 10 mg IVPUSH ONETIME ONE Stop: 03/01/21 05:31 Last Admin: 03/01/21 07:10 Dose: 10 mg Documented by: Miscellaneous Medication (Phenylephrine Hcl In 0.9% Nacl 1 Mg/10 Ml Syringe) Confirm Administered Dose 1 mg .ROUTE .STK-MED ONE Stop: 03/01/21 07:20 Morphine Sulfate (Morphine Pf 10 Mg/10 Ml Sdv) Confirm Administered Dose 10 mg .ROUTE .ST-MED ONE Stop: 03/01/21 07:20 Oxytocin (Oxytocin 10 Units/1 Ml Sdv) Confirm Administered Dose 10 unit .ROUTE .[facility]-MED ONE Stop: 03/01/21 07:26 Oxytocin (Oxytocin 10 Units/1 Ml Sdv) Confirm Administered Dose 10 unit .ROUTE .[facility]-MED ONE Stop: 03/01/21 08:12 Phenylephrine HCl (Phenylephrine 1% 10 Mg/Ml Sdv) Confirm Administered Dose 0 mg .ROUTE .[facility]-MED ONE Stop: 03/01/21 07:19 Sodium Chloride (Sodium Chloride 0.9% 10 Ml Syringe) 10 ml FLUSH 0900,2100 JAVIER
[2021-03-03] MEDS: Prenatal Multivitamin with Calcium/Folic Acid/Iron Tab PO SCH (09:58)
[2021-03-03] MEDS: Simethicone 80 MG Tab.Chew PO SCH (09:58)
[2021-03-03] MEDS: Acetaminophen/oxyCODONE 325-5 MG Tab PO PRN (12:06)
== END 2021-03-03 12:25 | disposition home or self-care (01) | DRG 540 ==
LOC: JD.OB 06:09
PROVIDERS: ADMIT Obstetrics & Gynecology; ATTEND Obstetrics & Gynecology
PROC: 10D00Z1 Extraction of Products of Conception, Low, Open Approach (ICD-10-PCS; principal; 2021-03-01)
DX: O34.211 Maternal care for low transverse scar from previous cesarean delivery (principal); Z37.0 Single live birth; O99.62 Diseases of the digestive system complicating childbirth; K80.20 Calculus of gallbladder without cholecystitis without obstruction; O99.824 Streptococcus B carrier state complicating childbirth; K21.9 Gastro-esophageal reflux disease without esophagitis; O77.0 Labor and delivery complicated by meconium in amniotic fluid; Z20.822 Contact with and (suspected) exposure to COVID-19; Z3A.39 39 weeks gestation of pregnancy; Z90.49 Acquired absence of other specified parts of digestive tract
CPT/HCPCS: 01961; 36415; 59025; 85025; 86592; 86850; 86900; 86901; A9270-GY; J0690; J1200; J1885; J2270; J2370; J2405; J2590; J2765; J3490; J7120; J7121; U0002